=== PATIENT | male | born 1940 | race Asian ===

== ENCOUNTER 2019-06-09 04:10 | Emergency (ER) | payer OTHER ==
[~2019-06-09] VITALS: Ht 165.1 cm; Wt 61.2 kg
--- NOTE | 2019-06-09 04:14 | NUR ---
ER Nurse Note: Pt not in waiting room
--- NOTE | 2019-06-09 04:35 | NUR ---
ED Nurse Note: pt walked in c/o difficulty urination since last night, pt reports he has hx BPH, pt reports last time he had same issue he went to [facility] and had catether for one week. ERMD notified. noted tenderness over lower abd.
--- NOTE | 2019-06-09 04:51 | NUR ---
ED Nurse Note: johnson cath 16 fr inserted per ERMD order via sterile technique, pt tolerated well, 10cc ns inserted. 30 cc yellow urine returned.
[2019-06-09 04:58] VITALS: BP 136/78
--- NOTE | 2019-06-09 05:09 | NUR ---
ED Nurse Note: pt cleared to be d/c per ERMD, pt discharge and aftercare instruction provided, pt provided w/ extra leg urinary bag, pt advised to follow up with pcp or return to ed if changes in condition, vss, ambulatory w/ steady gait, left w/ all belongings accompanied by spouse member, johnson intact, education done.
[2019-06-09 05:10] VITALS: BP 136/78
--- NOTE | 2019-06-09 06:49 | Emergency Room Report ---
History of Present Illness General Chief Complaint: Male Urogenital Problems Source: Patient, Family Member Present Illness HPI 79-year-old male presents ED for evaluation. States he has been unable to urinate since last night. Denies any abdominal pain. Denies flank pain. History of BPH. States he had a Johnson catheter which was removed last week by his PMD. States he is compliant with his medications. No other aggravating relieving factors. Denies any other associated symptoms Allergies: Coded Allergies: No Known Allergies (Unverified , 06/09/19) Patient History Past Medical History: HTN, other - BPH Past Surgical History: none Pertinent Family History: none Social History: Denies: smoking, alcohol use, drug use Immunizations: UTD Reviewed Nursing Documentation: PMH: Agreed; PSxH: Agreed Nursing Documentation-PMH Hx Hypertension: Yes Review of Systems All Other Systems: negative except mentioned in HPI Physical Exam Vital Signs Date Time Temp Pulse Resp B/P (MAP) Pulse Ox O2 Delivery O2 Flow Rate FiO2 06/09/19 04:22 97.7 67 16 153/73 (99) 96 Room Air Sp02 EP Interpretation: reviewed, normal General Appearance: no apparent distress, alert, GCS 15, non-toxic Head: normocephalic Eyes: bilateral eye normal inspection, bilateral eye PERRL ENT: normal ENT inspection Neck: normal inspection Respiratory: chest non-tender, lungs clear, normal breath sounds, speaking full sentences Cardiovascular #1: regular rate, rhythm, no edema Gastrointestinal: normal bowel sounds, non tender, soft, non-distended, no guarding, no rebound Rectal: deferred Genitourinary: no CVA tenderness Musculoskeletal: normal inspection Neurologic: alert, oriented x3, responsive, motor strength/tone normal, sensory intact, speech normal Psychiatric: normal inspection Skin: no rash Lymphatic: normal inspection Medical Decision Making Diagnostic Impression: Primary Impression: Urinary retention ER Course Hospital Course 79-year-old M presents to ED complaining of urinary retention. h/o BPH Differential diagnoses include: obstruction, UTI, BPH Clinical course Patient placed on stretcher. After initial history and physical I ordered johnson cather with immediate relief of obstruction On reassessment patient feels better. Will discharge to home. States he will take his medications as prescribed. States he will follow-up with his urologist. Diagnosis - urinary retention Stable and discharged home with johnson + leg bag. Instructed to followup with PMD/urologist. Return to ED if symptoms recur or worsen Last Vital Signs Date Time Temp Pulse Resp B/P (MAP) Pulse Ox O2 Delivery O2 Flow Rate FiO2 06/09/19 05:10 97.7 62 16 136/78 96 Room Air Status: improved Disposition: HOME, SELF-CARE Condition: Stable Referrals: Max Trevizo MD, Sameer M.D. NON PHYSICIAN (PCP) Patient Instructions: Johnson Catheter Care, Adult, Ioya-st-Rrxl Rogelio Centeno MD Jun 09, 2019 06:49
== END 2019-06-09 05:10 | disposition home or self-care (01) ==
LOC: EMR 04:48
DX: R33.8 Other retention of urine (principal); I10 Essential (primary) hypertension; N40.1 Benign prostatic hyperplasia with lower urinary tract symptoms
CPT/HCPCS: 51702; 99284

== ENCOUNTER 2019-10-01 03:26 | Emergency (ER) | payer MEDICARE, OTHER ==
[~2019-10-01] VITALS: Ht 154.9 cm; Wt 60.8 kg
--- NOTE | 2019-10-01 03:45 | NUR ---
ED Nurse Note: 16 Icelandic catheter was placed on, patient tolerated procedure well.
--- NOTE | 2019-10-01 03:52 | Emergency Room Report ---
History of Present Illness General Chief Complaint: Male Urogenital Problems Source: Patient, Medical Record Present Illness HPI This is a 79-year-old Mongolian speaking male with a history of high blood pressure and BPH. He presents with complaint of urinary retention. Onset for several hours now. Unable to urinate. Very painful. Very distended. Similar symptom last year. He denies any fever chills. No nausea no vomiting. Nothing made it better. Palpation and try to urinate made it worse. Allergies: Coded Allergies: No Known Allergies (Unverified , 06/09/19) Patient History Past Medical History: see triage record, old chart reviewed, HTN Past Surgical History: other Pertinent Family History: none Social History: Denies: smoking Immunizations: other Reviewed Nursing Documentation: PMH: Agreed; PSxH: Agreed Nursing Documentation-PMH Past Medical History: No Stated History Hx Hypertension: Yes Review of Systems Eye: Denies: eye pain, blurred vision ENT: Denies: ear pain, nose congestion, throat swelling Respiratory: Denies: cough, shortness of breath Cardiovascular: Denies: chest pain, palpitations Gastrointestinal: Denies: abdominal pain, diarrhea, nausea, vomiting Genitourinary: Reports: retention Musculoskeletal: Denies: back pain, joint pain Skin: Denies: rash Neurological: Denies: headache, numbness Endocrine: Denies: increased thirst, increased urine Hematologic/Lymphatic: Denies: easy bruising All Other Systems: negative except mentioned in HPI Physical Exam Vital Signs Date Time Temp Pulse Resp B/P (MAP) Pulse Ox O2 Delivery O2 Flow Rate FiO2 10/01/19 03:39 98.1 61 18 176/74 (108) 98 Room Air Vitals with high blood pressure Sp02 EP Interpretation: reviewed, normal General Appearance: well appearing, no apparent distress, alert Head: normocephalic, atraumatic Eyes: bilateral eye PERRL, bilateral eye EOMI ENT: hearing grossly normal, normal pharynx Neck: full range of motion, supple, no meningismus Respiratory: chest non-tender, lungs clear, normal breath sounds Cardiovascular #1: regular rate, rhythm, no murmur Gastrointestinal: normal bowel sounds, non tender, no mass, no organomegaly, no bruit, non-distended, other - Distended bladder Musculoskeletal: back normal, normal range of motion, gait/station normal Psychiatric: mood/affect normal Medical Decision Making Diagnostic Impression: Primary Impression: Urinary retention ER Course Resents with acute urinary retention. Blood pressure better after Marks placed. Output about 650 cc Last Vital Signs Date Time Temp Pulse Resp B/P (MAP) Pulse Ox O2 Delivery O2 Flow Rate FiO2 10/01/19 03:39 98.1 61 18 176/74 (108) 98 Room Air Status: improved Disposition: HOME, SELF-CARE Condition: Stable Scripts Tamsulosin HCl (Flomax) 0.4 Mg Cap.er.24h 0.4 MG ORAL DAILY, #30 CAP Prov: Scott Connors MD 10/01/19 Additional Instructions: Follow-up with your doctor in 2 to 3 days for recheck. Return if worse. Scott Connors MD Oct 01, 2019 03:52
[2019-10-01 03:55] VITALS: BP 176/74
--- NOTE | 2019-10-01 03:55 | NUR ---
ED Nurse Note: Patient walked in to Er with his , due to unable to urinate. States started 2-3 hrs ago.Patient AAO x4, VSS at this time, skin is warm to touch.
[2019-10-01] MEDS ORDERED: FLOMAX0.4 MG ORAL (04:32)
[2019-10-01 04:39] VITALS: BP 176/74
--- NOTE | 2019-10-01 04:41 | NUR ---
ED Nurse Note: Pt cleared by health care Provider for discharge. DC instructions/prescription was given and explained to pt and verbalized understanding of teachings. All medical deviecs such as ID band removed. Pt is AAO x4, ambulatory and left with all personal belongings.
== END 2019-10-01 04:43 | disposition home or self-care (01) ==
LOC: EMR 03:40
DX: R33.9 Retention of urine, unspecified (principal); I10 Essential (primary) hypertension
CPT/HCPCS: 51702; 99282; 99284